=== PATIENT | male | born 1965 | race Caucasian/White ===

== ENCOUNTER 2016-12-09 19:42 | Inpatient (IN) | payer OTHER ==
[~2016-12-09] VITALS: Ht 193 cm; Wt 164.3 kg
[~2016-12-09 19:42] MED LIST: HYDR1TAB PO; MONT5TAB PO
[2016-12-09 20:02] VITALS: BP 124/86; PULSE 117; RESP 24; O2SAT 96
[2016-12-09 20:59] LABS: Mean Corpuscular Hemoglobin 28.8 pg (27.0-35.0); Mean Corpuscular Volume 85.4 fL (81-100); Platelet Count 188 bil/L (150-400)
[2016-12-09 21:18] LABS: INR 1.15 ratio
[2016-12-09 21:21] LABS: Magnesium 1.6 mg/dL (1.6-2.6)
--- NOTE | 2016-12-09 21:31 | ED.REPORT ---
HPI-Extremity Problem Lower Date of Service Dec 09, 2016 ED Provider: Edgardo El MD A 51 year old male with a history of chronic back pain and bilateral knee replacement presents to the ED complaining of right leg swelling. The pt noticed the and swelling four days ago, and it has been worsening since. This is accompanied by redness and pain in the swollen area. The pt admits to occasional diaphoresis but denies chest pain or shortness of breath. Nursing Notes Stated Complaint: RT LEG SWOLLEN Chief Complaint: Extremity Trauma Nursing Notes Reviewed: Yes Allergies: Coded Allergies: No Known Allergies (Verified , 03/02/10) Scheduled Hydrocod/APAP-Expunged, Do Not Renew! (VICODIN 5/500-Expunged Drug, Do Not Renew ) 1 Udtab Tablet 5-500 MG PO Q4 prn Montelukast-Expunged Drug, Do Not Renew! (Singulair-Expunged Drug, Do Not Renew! ) 5 Mg Tab.chew 5 MG PO DAILY prn General Time Seen by MD: 21:29 Chief Complaint Other (RLE swelling) Hx Obtained From: Patient Arrived By: Walk-in Onset Occurred: 4 days ago Symptom Duration: Since onset Recent Healthcare: No recent doctor visit, No recent hospitalization Similar Sx Previous: No Past Medical History Past Medical History chronic back pain Past Surgical History bilateral knee replacement Smoking History Unknown if Ever Smoker Social History Other Social History: Good social support Ambulatory Status Independent Review of Systems Review of Systems Note: RLE redness Musculoskeletal: Reports: Extremity pain, Extremity swelling Skin: Denies Rash Complete sys rev & neg: except as marked. Respiratory: Denies: Non-productive cough, Shortness of breath Cardiovascular: Denies: Chest pain GI: Denies: Abdominal pain, Vomiting Physical Exam Initial Vital Signs Vital Signs (First) Date Time Temp Pulse Resp B/P Pulse Ox O2 Delivery O2 Flow Rate FiO2 12/09/16 20:02 36.3 117 24 124/86 96 Room Air 12/09/16 23:19 2 Initial VS: Reviewed, Vital signs abnormal Lower Extremity / Pelvis / MS: Full range of motion, Neurologic intact, Vascular intact swollen and erythematous right lower extremity extension of erythema to groin tender right calf tender right medial thigh distal pulses not palpable due to swelling cap refill normal no sores Ankle / Foot: Full range of motion, Neurologic intact General/Constitutional: Awake, Alert Respiratory / Chest: Atraumatic, Breath sounds NL, Breath sounds = bilat, No respiratory distress Cardiovascular: Heart rate NL, Regular rhythm, Heart sounds NL Skin: Atraumatic, Color NL, No rash, Warm, Dry Neurologic: Oriented X3, Speech NL, No motor deficits, No sensory deficits Head / Eyes: Atraumatic, Normocephalic, PERRL, EOMI ENT: Atraumatic, Airway patent, Mucous membranes moist Neck: Atraumatic, Supple, Full range of motion Abdomen: Atraumatic, Soft, Non-tender Back: Atraumatic, Full range of motion Upper Extremity / MS: Atraumatic, Full range of motion Psychiatric: Affect NL, Mood NL Interpretation & Diagnostics Interpretation & Diagnostics: CT Extremity - Right: IMPRESSION: 1. Right lower extremity cellulitis. No signs of necrotizing fascitis. 2. Moderate suprapatellar joint effusion with several tiny bubbles of gas. This requires evaluation for infection/septic fluid. US DVT: CONCLUSION: No evidence of right lower extremity deep venous thrombosis. Soft tissue edema consistent with history of cellulitis. Inguinal lymph node measuring up to 4 cm maximal dimension may be reactive to infection. Lab Results Interpretation Result Diagram: 12/09/16204412/09/162044 Test 12/09/16 20:45 12/09/16 22:06 White Blood Count 23.2th/mm3 (3.8-10.1) Red Blood Count 5.28mil/mm3 (4.40-5.80) Hemoglobin 15.2g/dL (13.8-17.2) Hematocrit 45.1% (41.0-50.0) Mean Corpuscular Volume 85.4fL (81-100) Mean Corpuscular Hemoglobin 28.8pg (27.0-35.0) Mean Corpuscular Hemoglobin Concent 33.7% (32.0-37.0) Red Cell Distribution Width 14.1% (12.3-15.4) Platelet Count 188bil/L (150-400) Neutrophils (%) (Auto) 72% (40-74) Lymphocytes (%) (Auto) 2% (14-46) Monocytes (%) (Auto) 4% (4-12) Eosinophils (%) (Auto) 0% (0-5) Basophils (%) (Auto) 0% (0-3) Band Neutrophils % 20% (1-5) Metamyelocytes % 2% (0-0) Hematology Comments Rbc Prothrombin Time 12.3sec (8.1-12.5) Prothromb Time International Ratio 1.15ratio Sodium Level 133mEq/L (134-144) Potassium Level 4.7mEq/L (3.5-5.2) Chloride Level 94mEq/L (97-108) Carbon Dioxide Level 17mmol/L (18-29) Blood Urea Nitrogen 28mg/dL (6-24) Creatinine 2.91mg/dL (0.76-1.27) Estimat Glomerular Filtration Rate 25mL/min (>59) Glucose Level 108mg/dL (60-99) Calcium Level 9.0mg/dL (8.5-10.1) Total Bilirubin 0.6mg/dL (0.0-1.2) Aspartate Amino Transf (AST/SGOT) 54U/L (0-50) Alanine Aminotransferase (ALT/SGPT) 47U/L (0-44) Alkaline Phosphatase 91U/L (25-150) Total Protein 7.9g/dL (6.4-8.4) Albumin 3.5g/dL (3.4-5.0) Hold Christensen Top Tube Received (Received) Urine Color Dark yellow (YELLOW) Urine Appearance Cloudy (CLEAR,HAZY) Urine pH 5.0 (5.0-8.0) Urine Specific [place] 1.020 (1.003-1.035) Urine Protein 100mg/dL (NEG,TRACE) Urine Glucose (UA) Negativemg/dL (NEGATIVE) Urine Ketones Negativemg/dL (NEGATIVE) Urine Occult Blood Small (NEGATIVE) Urine Nitrite Negative (NEGATIVE) Urine Bilirubin Negative (NEGATIVE) Urine Urobilinogen 1.0mg/dL (NORMAL) Urine Leukocyte Esterase Negative (NEGATIVE) Urine RBC 0-2/hpf (0-2) Urine WBC 11-50/hpf (0-5) Urine Epithelial Cells Occasional/hpf (NONE-MOD) Urine Crystals None seen (NONE SEEN) Urine Bacteria Moderate/hpf (NONE-FEW) Urine Hyaline Casts Occasional/lpf (NONE) Urine Granular Casts None seen (NONE SEEN) Urine Waxy Casts None seen (NONE SEEN) Urine Red Blood Cell Casts None seen (NONE SEEN) Urine White Blood Cell Casts None seen (NONE SEEN) Urine Mucus Present (None Seen) Urine Trichomonas None seen (NONE SEEN) Urine Yeast None (NONE SEEN) Urinalysis Comment None Urine Culture Reflexed Indicated Lab Results Interpretation: The elevated white blood count, AKA I, lactic acidosis ECG Interpretation ECG Interpretation: sinus tachycardia with a rate of 125 low voltage, precordial leads Time: 22:14 Interpreted by: ED physician X-Ray Chest Interpretation Chest Xray Interpretation: widened mediastinum otherwise normal Interpretation / Wet Read by: Wet read ED physician Re-Eval/Medical Decision Med Decision/Clinical Course 51-year-old male with severe cellulitis of the right lower extremity and sepsis. He was treated aggressively with cultures, fluids, and antibiotics. The lower externally CT scan does not show evidence of necrotizing fasciitis, although there are some small air bubbles in the prepatellar area. He will be admitted to the hospitalist service. Please see inpatient notes for details. Re-Evaluation/Progress : Time of Eval: 22:02 Patient Status: Condition improved Re-Evaluation/Progress Note: Pt rechecked, who is comfortable. The diagnosis and plan for admission are discussed. The pt understands and agrees with the plan. All questions are addressed at this time. Consultation : Referral / Consult Name: Kaylyn Hernandez DO Consulted With: Hospitalist Call Returned at: 23:27 Counter Waiter: Agrees with eval, Agrees with plan, Accepts admit Note: Spoke with Dr. Hernandez, hospitalist, regarding pt's case. Dr. Hernandez agrees with the evaluation and agrees to admit the pt. Counseled Regarding: Diagnosis, Lab results, Need for admission Discharge & Departure Impression: Primary Impression: Cellulitis of right lower extremity Additional Impressions: Sepsis Sepsis type: sepsis due to unspecified organism Qualified Code: A41.9 - Sepsis, unspecified organism Acute kidney injury Disposition: ADMITTED TO HOSPITAL Discharge Condition All VS Reviewed: Yes Condition: Stable Referrals: Caleb Hammond DO (PCP) Scribe Attestation Portions of this note were transcribed by Dewayne Edmondson. I, Dr. El personally performed the history, physical exam and medical decision-making; I reviewed and confirmed the accuracy of the information in the transcribed note. copies to: Caleb Hammond Howard L MD Dec 09, 2016 21:31 DEWAYNE EDMONDSON Dec 09, 2016 21:59
[2016-12-09] MEDS ORDERED: 0.9% Sodium Chloride 1,000 ML IV ONE ×2 (21:45→22:15)
[2016-12-09] MEDS ORDERED: Meropenem Inj 1,000 MG in 0.9% Sodium Chloride 100 ML IV ONE (21:45)
[2016-12-09] MEDS ORDERED: Vancomycin Dose per Pharmacist XX ONE (21:45)
[2016-12-09 21:51] LABS: NEUTROPHILS % (AUTO) 72 % (40-74)
[2016-12-09 21:52] LABS: BASOPHILS % (AUTO) 0 % (0-3); EOSINOPHILS % (AUTO) 0 % (0-5); MONOCYTES % (AUTO) 4 % (4-12)
[2016-12-09] MEDS: HYDROmorphone 0.5 mg/0.5 mL iSecure Syringe IVPUSH PRN ×2 (21:58→22:40)
[2016-12-09 22:28] LABS: APPEARANCE,URINE CLOUDY (CLEAR,HAZY); COLOR,URINE DARK YELLOW (YELLOW); OCCULT BLOOD,URINE SMALL (NEGATIVE)
[2016-12-09] MEDS ORDERED: Vancomycin Inj 2,250 MG in 0.9% Sodium Chloride 500 ML IV ONE (22:30)
[2016-12-09 22:48] VITALS: BP 142/76; PULSE 124; RESP 21; O2SAT 95
[2016-12-09 23:19] VITALS: BP 128/81; PULSE 124; RESP 20; O2SAT 94
[2016-12-10] MEDS ORDERED: 0.9% Sodium Chloride 1,000 ML IV ONE
[2016-12-10] MEDS ORDERED: 0.9% Sodium Chloride 1,000 ML IV SCH ×2 (00:01)
[2016-12-10] MEDS ORDERED: Alum-Mag Hydrox-Simeth 30 mL Suspension PO PRN (00:05)
[2016-12-10] MEDS ORDERED: Polyethylene Glycol (PEG) 17 Gm Powder PO PRN (00:05)
[2016-12-10] MEDS ORDERED: Ondansetron 2 mg/mL 2 mL Inj IVPUSH PRN (00:05)
[2016-12-10] MEDS ORDERED: Vancomycin Dose per Pharmacist XX ONE (00:05)
--- NOTE | 2016-12-10 00:21 | PCM.HPMED ---
Subjective Date of Service Dec 10, 2016 Primary Provider: Admitting Physician: Kaylyn Hernandez DO Primary Care Physician: Caleb Hammond DO Attending Physician: Kaylyn Hernandez DO Chief Complaint: Right lower extremity cellulitis History of Present Illness: 51-year-old male with a history of chronic back pain and minimal other history who presents to the emergency department complaining of right lower extremity swelling, erythema, and pain of 3 days' duration. The patient states that he knows swelling and erythema 3 days ago that continue to extend up and down his leg with increased pain. Patient also states has been having fever, chills, dizziness and myalgias. Patient denies chest pain, shortness of breath, lightheadedness, decreased urine output, or abdominal pain. Patient states this has never happened before. Over the last year the patient has had both knees replaced and has been less ambulatory than usual but not immobile. Emergency department patient's blood work indicates leukocytosis with bands, lactic acid 3.8, new elevations in LFTs, and a metabolic acidosis. Patient also shows signs of mod-severe acute kidney injury with a creatinine of 2.91. Review of Systems: Complete review of systems performed; pertinent positives and negatives per history of present illness, all other systems reviewed and are negative Allergies Coded Allergies: No Known Allergies (Verified , 03/02/10) Home Medications Singulair Hydrocodone 5/500 by mouth every 4 PMH Chronic back pain Asthma Surgical History Bilateral knee replacements within the last year Family History No family history of cardiac disease or diabetes. Social History Hx Alcohol Use: Yes (sporadic) Hx Substance Use: No Hx Tobacco Use: Yes (very occasional) Smoking Status: Unknown if Ever Smoker Living Arrangement: with Family Exam Vital Signs Vital Sign - Last Date Time Temp Pulse Resp B/P Pulse Ox O2 Delivery O2 Flow Rate FiO2 12/09/16 23:19 124 20 128/81 94 Nasal Cannula 2 12/09/16 20:02 36.3 Intake and Output 12/09/16 12/09/16 12/10/16 Cumulative From/Thru 15:00 23:00 07:00 12/09/16 20:02 - 12/09/16 23:24 Intake Total 2600 ml 2600 ml Balance 2600 ml 2600 ml Intake IV Total 2600 ml 2600 ml Exam General: Toxic appearing male of stated age, in mild distress HEENT: PERRLA, EOMI, nonicteric, membranes dry Lymph: No lymphadenopathy Cardio: Tachycardic with no murmurs or rubs Respiratory: CTA bilaterally, no wheezes, no crackles Abdomen: Soft, positive bowel sounds, nontender, nondistended Extremities: Right lower extremity moderate to severe edema with 2 large areas of erythema and smaller areas of erythema dispersed up the leg past the knee; tender to movement and touch Psych: Appropriate mood and affect Neuro: CN II through XII grossly intact, sensation intact throughout Skin: No rash Lab and Diagnostics Result Diagram: 12/09/16204412/09/162044 X-Rays, CTs and MRIs CT right lower extremity Imaging pending Reported negative venous duplex 12-lead ECG Sinus tachycardia heart rate of 125 Assessment & Plan 51-year-old male with chronic back pain presents emergency department due to 3 days of right lower extremity swelling, erythema, pain, with associated fever, chills, and myalgias. Severe sepsis secondary to extremity cellulitis with multiple organ dysfunction ; present on admission; ongoing -Tachycardia, tachypnea and leukocytosis -Right lower Extremity CT pending -LRINEC score 7-8, CRP > 400 -Lactic Acid 3.8 -Vancomycin and meropenem started in the emergency department -Meropenem would be ideal as vancomycin and Zosyn lead to greater risk of kidney injury which is already occurring -Discussed options with pharmacy and Unasyn was recommended over meropenem, however meropenem was continued and clindamycin added -Continue vancomycin, renally dosed by pharmacy -Blood cultures obtained before antibiotics, pending -If CRP returned greater than 150 emergent surgical consult who saw for possible surgery for necrotizing fasciitis -Trend lactic acid every 2 hour to resolution -3 L normal saline by time of admit and continue at 150 mL/HR -Infectious disease consult recommended for a.m. Severe acute kidney injury; present on admission; ongoing -Appear second to severe sepsis with BUN of 28 and creatinine 2.91 -Treatment for sepsis as above -3 L already given -nephrology consult if renal function worsens Acute anion gap metabolic acidosis with lactic acidosis; present on admission number: ongoing -Lactic acidosis of 3.8 with anion gap of 22 in the setting of CHRISTIANO -Fluids as above -trend lactic acid -Recheck CMP in the morning Acute elevation of transaminases; present on admission; ongoing -Likely second to sepsis as patient has no history of IV drug use or heart failure -Bilirubin is normal -Fluids as above -Recheck CMP Mild hyperglycemia; present on admission; ongoing -Glucose 108 likely stress reaction -Continue to watch Chronic back pain-Dilaudid for pain tonight Disposition: Patient is being admitted to inpatient status with expected length of stay greater than two midnights due to to severity of presentation, duration of treatment, and risks of adverse events disposition Full code Pain Evaluation: Adequate Pain Control VTE Prophylaxis: Sub-Q Heparin (Unfractionated) Resuscitation Status: CPR: Attempt Resuscitation Attending Statement The patient was seen and examined together with house staff on 12/09/2016 and I agree with the history, exam and plan as outlined in the note above. Consult was made to surgery. Transfer planned to [facility] via Angel Tenorio DO Dec 10, 2016 00:21 Kaylyn Hernandez DO Dec 10, 2016 03:22
[2016-12-10] MEDS ORDERED: Sodium Chloride LOK Flush 10 mL Syringe IVFLUSH SCH (00:30)
[2016-12-10 01:25] VITALS: BP 159/77; PULSE 134; RESP 24; O2SAT 95
[2016-12-10] MEDS ORDERED: Acetaminophen IV 1,000 MG in IV Premix 1 EACH IV ONE (01:30)
[2016-12-10] MEDS ORDERED: Clindamycin Inj 900 MG in IV Premix 1 EACH IV SCH (01:30)
[2016-12-10] MEDS ORDERED: Ampicillin-Sulbactam Inj 3,000 MG in 0.9% Sodium Chloride 100 ML IV SCH (02:30)
[2016-12-10] MEDS ORDERED: DEXTROSE 5% IV ONE (02:45)
[2016-12-10] MEDS ORDERED: PENICILLIN K IV ONE (02:45)
--- NOTE | 2016-12-10 02:46 | NUR ---
Admit note Admitted to [facility] from ER at 0120. Pt minimally responsive after Dilaudid in ER. Arouses to open eyes and make single verbal response to deny pain then falls asleep. Right leg hot to touch, swollen and reddened from ankle to knee with reddened area from inner knee to groin.. Temp 38.3. 1 gram iv Tylenol given x1. Ivf Ns at 150ml/h after total 3l NS. Sats on 4l/nc mid 90s while asleep. Calf measured 52.5cm at largest and marked. Mid thigh measured 61mc and marked. 0245: Dr Lai arranging for transport to [facility].
--- NOTE | 2016-12-10 03:48 | PCM.DC.MED ---
Discharge Summary Date of Service Dec 10, 2016 Dates of Hospitalization Date of Hospital Admission Dec 09, 2016 at 23:37 Date of Discharge: Dec 10, 2016 Providers: Admitting Physician: Kaylyn Hernandez DO Primary Care Physician: Caleb Hammond DO Attending Physician: Kaylyn Hernandez DO Diagnosis at Time of Discharge Diagnosis at Time of Discharge Necrotizing fasciitis with concern for intra-articular invasion Procedures XRay, CTs & MRIs CT right lower extremity Imaging pending Reported negative venous duplex ECG 12 Lead Sinus tachycardia heart rate of 125 Brief History 51-year-old male with a history of chronic back pain and minimal other history who presents to the emergency department complaining of right lower extremity swelling, erythema, and pain of 3 days' duration. The patient states that he knows swelling and erythema 3 days ago that continue to extend up and down his leg with increased pain. Patient also states has been having fever, chills, dizziness and myalgias. Patient denies chest pain, shortness of breath, lightheadedness, decreased urine output, or abdominal pain. Patient states this has never happened before. Over the last year the patient has had both knees replaced and has been less ambulatory than usual but not immobile. Emergency department patient's blood work indicates leukocytosis with bands, lactic acid 3.8, new elevations in LFTs, and a metabolic acidosis. Patient also shows signs of mod-severe acute kidney injury with a creatinine of 2.91. Hospital Course 51-year-old male with chronic back pain presents emergency department due to 3 days of right lower extremity swelling, erythema, pain, with associated fever, chills, and myalgias. Patient was diagnosed with sepsis due to tachycardia, tachypnea, and leukocytosis. Concern for necrotizing fasciitis prompted CT of the lower right extremity which was reported to contain air in or around the joint. The patient's LRINEC score was 7-8 with a CRP over 400, new kidney and liver injury, lactic acidosis of 3.8, and moderate leukocytosis. The patient was started on meropenem and vancomycin initially. After CT returned positive for air the patient was expanded to vancomycin, meropenem, and cefepime. Penicillin G was added stat prior to transport. Patient was hydrated with 3-1/ 2 L of normal saline, and continuous at 150 mL per hour. This case was discussed with the on-call surgeon, Dr. Brandon Franco, as well as the orthopedic associate professor of education, Dr. Harvey. Consensus was that because there was air found around the joint in a patient who had a knee replacement 6 months ago, and due to the severity of the patient's presentation and clinical course while in the hospital, the patient should be transferred to [facility]. [facility] transfer was contacted and accepted the transfer. Patient's family was contacted and gave verbal for consent as the patient had become delirious. Prior to transport the patient's vitals worsened with new fever of 38.3 and worsening tachycardia of 135. Transported via ALS. Patient wishes to be full code. Exam Vital Signs (Last) Date Time Temp Pulse Resp B/P Pulse Ox O2 Delivery O2 Flow Rate FiO2 12/10/16 01:25 38.3 134 24 159/77 95 Nasal Cannula 4.50 Exam General: Toxic appearing male of stated age, in mild distress HEENT: PERRLA, EOMI, nonicteric, membranes dry Lymph: No lymphadenopathy Cardio: Tachycardic with no murmurs or rubs Respiratory: CTA bilaterally, no wheezes, no crackles Abdomen: Soft, positive bowel sounds, nontender, nondistended Extremities: Right lower extremity moderate to severe edema with 2 large areas of erythema and smaller areas of erythema dispersed up the leg past the knee; tender to movement and touch Psych: Appropriate mood and affect Neuro: CN II through XII grossly intact, sensation intact throughout Skin: Erythematous noncompliant rash over the right lower extremity; skin was warm to the touch diffusely Test 12/09/16 20:45 12/09/16 22:06 12/10/16 00:06 12/10/16 00:16 White Blood Count 23.2th/mm3 (3.8-10.1) Red Blood Count 5.28mil/mm3 (4.40-5.80) Hemoglobin 15.2g/dL (13.8-17.2) Hematocrit 45.1% (41.0-50.0) Mean Corpuscular Volume 85.4fL (81-100) Mean Corpuscular Hemoglobin 28.8pg (27.0-35.0) Mean Corpuscular Hemoglobin Concent 33.7% (32.0-37.0) Red Cell Distribution Width 14.1% (12.3-15.4) Platelet Count 188bil/L (150-400) Neutrophils (%) (Auto) 72% (40-74) Lymphocytes (%) (Auto) 2% (14-46) Monocytes (%) (Auto) 4% (4-12) Eosinophils (%) (Auto) 0% (0-5) Basophils (%) (Auto) 0% (0-3) Band Neutrophils % 20% (1-5) Metamyelocytes % 2% (0-0) Hematology Comments Rbc Prothrombin Time 12.3sec (8.1-12.5) Prothromb Time International Ratio 1.15ratio Sodium Level 133mEq/L (134-144) Potassium Level 4.7mEq/L (3.5-5.2) Chloride Level 94mEq/L (97-108) Carbon Dioxide Level 17mmol/L (18-29) Blood Urea Nitrogen 28mg/dL (6-24) Creatinine 2.91mg/dL (0.76-1.27) Estimat Glomerular Filtration Rate 25mL/min (>59) Glucose Level 108mg/dL (60-99) Calcium Level 9.0mg/dL (8.5-10.1) Total Bilirubin 0.6mg/dL (0.0-1.2) Aspartate Amino Transf (AST/SGOT) 54U/L (0-50) Alanine Aminotransferase (ALT/SGPT) 47U/L (0-44) Alkaline Phosphatase 91U/L (25-150) Total Protein 7.9g/dL (6.4-8.4) Albumin 3.5g/dL (3.4-5.0) Hold Christensen Top Tube Received (Received) Urine Color Dark yellow (YELLOW) Urine Appearance Cloudy (CLEAR,HAZY) Urine pH 5.0 (5.0-8.0) Urine Specific [place] 1.020 (1.003-1.035) Urine Protein 100mg/dL (NEG,TRACE) Urine Glucose (UA) Negativemg/dL (NEGATIVE) Urine Ketones Negativemg/dL (NEGATIVE) Urine Occult Blood Small (NEGATIVE) Urine Nitrite Negative (NEGATIVE) Urine Bilirubin Negative (NEGATIVE) Urine Urobilinogen 1.0mg/dL (NORMAL) Urine Leukocyte Esterase Negative (NEGATIVE) Urine RBC 0-2/hpf (0-2) Urine WBC 11-50/hpf (0-5) Urine Epithelial Cells Occasional/hpf (NONE-MOD) Urine Crystals None seen (NONE SEEN) Urine Bacteria Moderate/hpf (NONE-FEW) Urine Hyaline Casts Occasional/lpf (NONE) Urine Granular Casts None seen (NONE SEEN) Urine Waxy Casts None seen (NONE SEEN) Urine Red Blood Cell Casts None seen (NONE SEEN) Urine White Blood Cell Casts None seen (NONE SEEN) Urine Mucus Present (None Seen) Urine Trichomonas None seen (NONE SEEN) Urine Yeast None (NONE SEEN) Urinalysis Comment None Urine Culture Reflexed Indicated C-Reactive Protein 48.3mg/dL (0.0-0.5) Total Creatine Kinase 119U/L (21-232) Procalcitonin 12.38ng/mL (0.00-0.08) Test 12/10/16 00:32 12/10/16 02:35 Magnesium Level 1.5mg/dL (1.6-2.6) Lactic Acid Level 2.1mmol/L (0.4-2.0) Discharge Medications Discharge Medications Hydrocod/APAP-Expunged, Do Not Renew! (VICODIN 5/500-Expunged Drug, Do Not Renew ) 1 Udtab Tablet 5-500 MG PO Q4 (Reported) prn Montelukast-Expunged Drug, Do Not Renew! (Singulair-Expunged Drug, Do Not Renew! ) 5 Mg Tab.chew 5 MG PO DAILY (Reported) prn Attending Statement The patient was seen and examined together with house staff on 12/10/2016 and I agree with the history, exam and plan as outlined in the note above. Angel Lai DO Dec 10, 2016 03:48 Kaylyn Hernandez DO Dec 11, 2016 06:43
--- NOTE | 2016-12-10 06:00 | NUR ---
Transfer note Pt transferred to [facility] at 0400 via ALS . Belongings with pt on admit sent with pt. Daughter, Poonam, updated by MD prior to transfer.
[2016-12-10] MEDS ORDERED: Meropenem Inj 1,000 MG in 0.9% Sodium Chloride 100 ML IV SCH (07:00)
--- NOTE | 2016-12-10 08:18 | DRSVH ---
PROCEDURE: US VEINOUS LEG DUPLEX UNILATERAL, RIGHT INDICATIONS: swollen right leg TECHNIQUE: Real-time imaging, as well as color and pulse Doppler interrogation, were performed of the lower extr emity deep veins from the inguinal ligament to the popliteal fossa. COMPARISON: [facility] Ultrasound, US, US VENOUS LEG DPLX UNI RT, 12/11/2015, 15:39. FINDINGS: The deep veins are normally compressible, and free of intraluminal thrombus. Color and pu lse Doppler demonstrate normal phasic intraluminal flow. There is normal augmentation response to di stal compression maneuver. IMPRESSION: No DVT found. Several small lymph nodes scattered within the lower extremity soft tissue s are noted but no enlarged nodes are seen inferiorly. The largest node identified measures up to 4 cm at the inguinal area on the right. Please correlate clinically for whether additional assessment for adenopathy within the pelvis by CT or MR scanning is warranted. Note: These findings are concordant with the preliminary interpretation. Dictated by: Ruslan Tejeda M.D. on 12/10/2016 at 8:14 Approved by: Ruslan Tejeda M.D. on 12/10/2016 at 8:16
[2016-12-10] MEDS ORDERED: Vancomycin Dose per Pharmacist XX SCH (08:30)
--- NOTE | 2016-12-10 08:51 | DRSVH ---
PROCEDURE: X-RAY CHEST ONE VIEW, PORTABLE ([id number]) INDICATIONS: cellulitis, sepsis TECHNIQUE: One view of the chest was acquired. COMPARISON: None. FINDINGS: Surgical changes and devices: None. Lungs and pleura: No pleural effusions or pneumothorax. Lungs are clear. Lung lungs are lower and there is mild bronchovascular crowding. Mediastinum: Mediastinal contours appear normal. Heart size is normal. Bones and chest wall: No suspicious bony lesions. Overlying soft tissues appear unremarkable. IMPRESSION: No acute cardiopulmonary disease. Dictated by: Philip Durbin [facility] Interpreted: Tj Pimentel MD on 12/10/2016 at 8:12 Approved by: Tj Pimentel M.D. on 12/10/2016 at 8:49
[2016-12-10] MEDS ORDERED: Vancomycin Serum Trough XX ONE (09:00)
--- NOTE | 2016-12-10 10:41 | DRSVH ---
PROCEDURE: CT LOWER EXTREMITY WITHOUT CONTRAST ([id number]) INDICATIONS: severe cellulitis, R/O necrotizing fasciitis TECHNIQUE: Noncontrast 3 mm axial sections acquired of the right lower extremity from above the knees through th e knee arthroplasty area and into the hindfoot, with coronal and sagittal reformats. For radiation d ose reduction, the following was used: automated exposure control, adjustment of mA and/or kV accord ing to patient size. COMPARISON: [facility] Jim[facility], KNEE SERIES RT, 12/18/2015, 14: 01. [facility], CR, XR KNEE 3VW RT, 07/18/2015, 17:55. [facility], 09/23/2016, 14:44. FINDINGS: Image quality: Excellent. Bones: No osteomyelitis found, note is made of a right total knee arthroplasty in place present and also 12/18/15. Soft tissues: Note is made of prominent soft tissue edema and cutaneous thickening involving the calf and crossing the ankle and foot area but without gas bubbles in the area of inflammatory change. Th ere are, however, gas bubbles within the suprapatellar bursal space where a moderate joint effusion i s partially visualized. IMPRESSION: Prominent cellulitis pattern, but without gas bubbles in the area of soft tissue inflamma tion of this cutaneous and subcutaneous soft tissues over the knee, calf and hindfoot. There are, however, gas bubbles within a moderate right suprapatellar joint effusion. This may repre sent a manifestation of acute infection in this clinical circumstance, but a joint aspiration procedu re conceivably could have introduced gas into the joint space, without infection. Please correlate c linically. No sign of necrotizing fasciitis by presence of gas bubbles tracking through the soft tissues discuss ed above. No foreign body beyond the knee joint arthroplasty which appears to have been placed at so me point before 12/18/15. These findings were called immediately to the emergency room physician caring for the patient at time of initial interpretation. Followup knee joint effusion aspiration is recommended if that has not y et been performed. Note: These findings are concordant with the preliminary interpretation. Dictated by: Ruslan Tejeda M.D. on 12/10/2016 at 10:27 Approved by: Ruslan Tejeda M.D. on 12/10/2016 at 10:40
== END 2016-12-10 04:02 | disposition short-term general hospital (02) | DRG 871 ==
LOC: SED 19:42 → PCC 23:37
PROVIDERS: ADMIT Internal Medicine; ATTEND Internal Medicine
DX: A41.9 Sepsis, unspecified organism (principal); M72.6 Necrotizing fasciitis; E87.2 Acidosis; N17.9 Acute kidney failure, unspecified; L03.115 Cellulitis of right lower limb; R65.20 Severe sepsis without septic shock; Z96.653 Presence of artificial knee joint, bilateral; G89.29 Other chronic pain; B95.0 Streptococcus, group A, as the cause of diseases classified elsewhere